=== PATIENT | male | born 1930 | race Asian ===

== ENCOUNTER 2017-08-14 18:34 | Inpatient (IN) | payer OTHER, MEDICAID ==
[~2017-08-14] VITALS: Ht 157.5 cm; Wt 61.7 kg
[2017-08-14 18:45] VITALS: Ht 157.5 cm; Wt 61.7 kg
[2017-08-14 19:50] LABS: BASOPHIL % 0.2 % (0-2); PLATELET COUNT 198 x10^3mcL (130-400); RED CELL DISTRIBUTION WIDTH 13.6 % (11.5-14.5)
[2017-08-14 20:00] LABS: CALCIUM 9.9 mg/dL (8.5-10.1); CARBON DIOXIDE 22.9 mmol/L (21-32); CHLORIDE SERUM 102 mmol/L (98-107); CREATININE SERUM 1.3 mg/dL (0.7-1.3); GLUCOSE SERUM 152 mg/dL (74-106); POTASSIUM SERUM 4.1 mmol/L (3.5-5.1); SODIUM SERUM 135 mmol/L (136-145)
[2017-08-14 20:10] LABS: UA SPECIFIC GRAVITY 1.015 (1.005-1.035); microscopic required? YES; urine erythrocyte 1+ (NEGATIVE)
[2017-08-14 20:10] LABS: ALBUMIN 3.8 g/dL (3.4-5.0); ALKALINE PHOSPHATASE 96 U/L (46-116); ALT/SGPT 28 U/L (16-63); AST/SGOT 27 U/L (15-37); BILIRUBIN TOTAL 0.49 mg/dL (0.20-1.00); TOTAL PROTEIN, SERUM 7.5 g/dL (6.4-8.2)
[2017-08-14 20:15] LABS: CK-MB 1.7 ng/mL (0-3.6)
[2017-08-14 21:47] VITALS: BP 149/58
[2017-08-14 21:49] LABS: MAGNESIUM 2.1 mg/dL (1.8-2.4); PHOSPHOROUS 1.7 mg/dL (2.5-4.9)
[2017-08-14 21:52] LABS: T3 TOTAL 0.91 ng/mL
[2017-08-14 21:57] LABS: FREE T4 1.25 ng/dL (0.76-1.46); FREE THYROXINE INDEX 3.8 ug/dL (1.4-4.5); T4(THYROXINE) 10.8 ug/dL (4.7-13.3)
[2017-08-14] MEDS ORDERED: NOR5 PO (22:11)
[2017-08-14] MEDS ORDERED: METFORMIN HCL500 MG PO (22:11)
[2017-08-14] MEDS ORDERED: LOSARTAN POTASS50 M1 PO (22:12)
[2017-08-15] VITALS (8 sets, daily range): BP systolic 127–151; BP diastolic 53–69
[2017-08-15 07:13] LABS: BASOPHIL % 0.3 % (0-2); PLATELET COUNT 168 x10^3mcL (130-400); RED CELL DISTRIBUTION WIDTH 13.9 % (11.5-14.5)
[2017-08-15 07:21] LABS: CALCIUM 9.2 mg/dL (8.5-10.1); CARBON DIOXIDE 25.4 mmol/L (21-32); CHLORIDE SERUM 103 mmol/L (98-107); CREATININE SERUM 1.1 mg/dL (0.7-1.3); GLUCOSE SERUM 121 mg/dL (74-106); MAGNESIUM 1.9 mg/dL (1.8-2.4); PHOSPHOROUS 2.7 mg/dL (2.5-4.9); POTASSIUM SERUM 3.9 mmol/L (3.5-5.1); SODIUM SERUM 136 mmol/L (136-145)
[2017-08-15] MEDS ORDERED: SINEMET 25-1001 TAB PO (12:12)
[2017-08-16 05:31] VITALS: BP 113/60
[2017-08-16 07:13] LABS: CALCIUM 9.7 mg/dL (8.5-10.1); CARBON DIOXIDE 22.6 mmol/L (21-32); CHLORIDE SERUM 101 mmol/L (98-107); CREATININE SERUM 1.1 mg/dL (0.7-1.3); GLUCOSE SERUM 144 mg/dL (74-106); POTASSIUM SERUM 4.1 mmol/L (3.5-5.1); SODIUM SERUM 134 mmol/L (136-145)
[2017-08-16 08:07] LABS: BASOPHIL % 0.4 % (0-2); PLATELET COUNT 158 x10^3mcL (130-400); RED CELL DISTRIBUTION WIDTH 13.8 % (11.5-14.5)
[2017-08-16 09:56] VITALS: BP 141/56
[2017-08-16 13:14] VITALS: BP 127/55
[2017-08-16 17:54] VITALS: BP 132/55; BP 135/57
[2017-08-16 21:54] VITALS: BP 138/61
[2017-08-17 05:58] LABS: BASOPHIL % 0.5 % (0-2); PLATELET COUNT 171 x10^3mcL (130-400); RED CELL DISTRIBUTION WIDTH 13.6 % (11.5-14.5)
[2017-08-17 06:20] VITALS: BP 122/53
[2017-08-17 06:24] LABS: CALCIUM 9.9 mg/dL (8.5-10.1); CARBON DIOXIDE 24.4 mmol/L (21-32); CHLORIDE SERUM 102 mmol/L (98-107); CREATININE SERUM 1.2 mg/dL (0.7-1.3); GLUCOSE SERUM 145 mg/dL (74-106); POTASSIUM SERUM 4.5 mmol/L (3.5-5.1); SODIUM SERUM 135 mmol/L (136-145)
[2017-08-17 09:55] VITALS: BP 118/49
[2017-08-17 12:00] VITALS: BP 119/46
[2017-08-17 15:53] VITALS: BP 119/46
[2017-08-17] MEDS ORDERED: LEVAQUIN500 M1 PO ×2 (16:01→18:58)
[2017-08-17] MEDS ORDERED: CLINDAMYCIN300 M1 PO (16:02)
[2017-08-17 17:36] VITALS: BP 105/53
[2017-08-17] MEDS ORDERED: CLINDAMYCIN HC300 MG PO (18:58)
[2017-08-17] MEDS ORDERED: LAC PO (18:58)
== END 2017-08-17 19:00 | disposition home or self-care (01) | DRG 177 ==
LOC: ED 18:34 → DU 20:59 → EDBEDREQ 20:59 → DU 21:34
PROVIDERS: Emergency Medicine; Family Medicine
DX: J69.0 Pneumonitis due to inhalation of food and vomit (principal); J96.00 Acute respiratory failure, unspecified whether with hypoxia or hypercapnia; N17.0 Acute kidney failure with tubular necrosis; E87.1 Hypo-osmolality and hyponatremia; E11.51 Type 2 diabetes mellitus with diabetic peripheral angiopathy without gangrene; E83.39 Other disorders of phosphorus metabolism; G20 Parkinson's disease; I10 Essential (primary) hypertension; D64.9 Anemia, unspecified; Z68.25 Body mass index [BMI] 25.0-25.9, adult; Z79.84 Long term (current) use of oral hypoglycemic drugs
CPT/HCPCS: 82962; 83880; 84439; 94150; 97110-GP; 97116-GP; 97530-GP; A9500; J1644; J1956; J2785; J3490; J7030; J7620; Q0092

== ENCOUNTER 2017-12-12 16:51 | Emergency (ER) | payer OTHER, MEDICAID ==
[~2017-12-12] VITALS: Ht 154.9 cm; Wt 65.8 kg
[~2017-12-12 16:51] MED LIST: CLINDAMYCIN HC300 MG PO; CLINDAMYCIN300 M1 PO; LAC PO; LEVAQUIN500 M1 PO; LOSARTAN POTASS50 M1 PO; METFORMIN HCL500 MG PO; NOR5 PO; SINEMET 25-1001 TAB PO
[2017-12-12 16:59] VITALS: Ht 154.9 cm; Wt 65.8 kg
[2017-12-12 17:38] LABS: BASOPHIL % 0.4 % (0-2); PLATELET COUNT 259 x10^3mcL (130-400); RED CELL DISTRIBUTION WIDTH 13.4 % (11.5-14.5)
[2017-12-12 17:48] LABS: CALCIUM 10.1 mg/dL (8.5-10.1); CARBON DIOXIDE 26.1 mmol/L (21-32); CHLORIDE SERUM 101 mmol/L (98-107); CREATININE SERUM 1.1 mg/dL (0.7-1.3); GLUCOSE SERUM 151 mg/dL (74-106); POTASSIUM SERUM 4.6 mmol/L (3.5-5.1); SODIUM SERUM 138 mmol/L (136-145)
[2017-12-12 17:54] LABS: ALBUMIN 3.7 g/dL (3.4-5.0); ALKALINE PHOSPHATASE 92 U/L (46-116); ALT/SGPT 8 U/L (16-63); AST/SGOT 16 U/L (15-37); BILIRUBIN TOTAL 0.49 mg/dL (0.20-1.00); TOTAL PROTEIN, SERUM 7.1 g/dL (6.4-8.2)
[2017-12-12 19:26] LABS: microscopic required? NO
[2017-12-12 19:34] LABS: urine erythrocyte NEGATIVE (NEGATIVE)
[2017-12-12 20:44] VITALS: BP 150/70
== END 2017-12-12 20:44 | disposition short-term general hospital (02) ==
LOC: ED 16:51
PROVIDERS: Emergency Medicine
DX: I63.9 Cerebral infarction, unspecified (principal); I10 Essential (primary) hypertension; G20 Parkinson's disease; E11.9 Type 2 diabetes mellitus without complications
CPT/HCPCS: 82962; J7040; Q0092

== ENCOUNTER 2018-01-23 10:17 | Inpatient (IN) | payer OTHER, MEDICAID ==
[~2018-01-23] VITALS: Ht 154.9 cm; Wt 63.5 kg
[2018-01-23 11:16] LABS: BASOPHIL % 0.2 % (0-2); PLATELET COUNT 235 x10^3mcL (130-400); RED CELL DISTRIBUTION WIDTH 13.5 % (11.5-14.5)
[2018-01-23 11:23] LABS: CALCIUM 10.1 mg/dL (8.5-10.1); CARBON DIOXIDE 23.1 mmol/L (21-32); CHLORIDE SERUM 96 mmol/L (98-107); CREATININE SERUM 1.3 mg/dL (0.7-1.3); GLUCOSE SERUM 202 mg/dL (74-106); POTASSIUM SERUM 4.5 mmol/L (3.5-5.1); SODIUM SERUM 128 mmol/L (136-145)
[2018-01-23 11:27] LABS: ALBUMIN 3.5 g/dL (3.4-5.0); ALKALINE PHOSPHATASE 99 U/L (46-116); ALT/SGPT 10 U/L (16-63); AST/SGOT 19 U/L (15-37); TOTAL PROTEIN, SERUM 6.8 g/dL (6.4-8.2)
[2018-01-23] MEDS ORDERED: ATORVASTATIN CA40 M1 PO (13:02)
[2018-01-23] MEDS ORDERED: ASPIR 8181 MG PO (13:02)
[2018-01-23] MEDS ORDERED: CLOPIDOGREL75 M1 PO (13:02)
[2018-01-23] MEDS ORDERED: MAGNESIUM OXID400 MG PO (13:03)
[2018-01-23] MEDS ORDERED: MASON NATURAL1000 IU PO (13:03)
[2018-01-23 13:58] VITALS: BP 157/68
[2018-01-23 17:17] VITALS: BP 147/45
[2018-01-23 17:30] VITALS: Ht 154.9 cm; Wt 63.5 kg
[2018-01-23 20:57] VITALS: BP 146/63
[2018-01-24 00:57] LABS: microscopic required? YES; urine erythrocyte 1+ (NEGATIVE)
[2018-01-24 05:40] VITALS: BP 142/58
[2018-01-24 06:45] LABS: BASOPHIL % 0.2 % (0-2); PLATELET COUNT 246 x10^3mcL (130-400); RED CELL DISTRIBUTION WIDTH 13.1 % (11.5-14.5)
[2018-01-24 07:12] LABS: CALCIUM 9.5 mg/dL (8.5-10.1); CARBON DIOXIDE 22.1 mmol/L (21-32); CHLORIDE SERUM 102 mmol/L (98-107); CREATININE SERUM 0.9 mg/dL (0.7-1.3); GLUCOSE SERUM 117 mg/dL (74-106); POTASSIUM SERUM 3.8 mmol/L (3.5-5.1); SODIUM SERUM 134 mmol/L (136-145)
[2018-01-24 10:00] VITALS: BP 132/49
[2018-01-24 13:37] VITALS: BP 114/60
[2018-01-24 15:07] VITALS: BP 114/60
== END 2018-01-24 15:53 | disposition home or self-care (01) | DRG 312 ==
LOC: ED 10:17 → DU 12:52
PROVIDERS: Emergency Medicine; Internal Medicine Pulmonary Disease
DX: R55 Syncope and collapse (principal); E87.1 Hypo-osmolality and hyponatremia; S00.11XA Contusion of right eyelid and periocular area, initial encounter; G20 Parkinson's disease; F02.80 Dementia in other diseases classified elsewhere, unspecified severity, without behavioral disturbance, psychotic disturbance, mood disturbance, and anxiety; I10 Essential (primary) hypertension; E11.9 Type 2 diabetes mellitus without complications; Z79.84 Long term (current) use of oral hypoglycemic drugs; W19.XXXA Unspecified fall, initial encounter; Y92.009 Unspecified place in unspecified non-institutional (private) residence as the place of occurrence of the external cause
CPT/HCPCS: 83880; 97110-GP; 97530-GP; J7030; J7040; Q0092

== ENCOUNTER 2018-03-03 21:18 | Emergency (ER) | payer OTHER, MEDICAID ==
[~2018-03-03] VITALS: Ht 154.9 cm; Wt 62.8 kg
[~2018-03-03 21:18] MED LIST changes: +ASPIR 8181 MG PO; +ATORVASTATIN CA40 M1 PO; +CLOPIDOGREL75 M1 PO; +MAGNESIUM OXID400 MG PO; +MASON NATURAL1000 IU PO
[2018-03-03 21:22] VITALS: Ht 154.9 cm; Wt 62.8 kg
[2018-03-04 00:26] VITALS: BP 126/101
== END 2018-03-04 00:26 | disposition home or self-care (01) ==
LOC: ED 21:18
DX: S61.411A Laceration without foreign body of right hand, initial encounter (principal); W18.30XA Fall on same level, unspecified, initial encounter; Y93.89 Activity, other specified; Y92.89 Other specified places as the place of occurrence of the external cause; Y99.8 Other external cause status; I10 Essential (primary) hypertension; E11.9 Type 2 diabetes mellitus without complications
CPT/HCPCS: 90715

== ENCOUNTER 2018-06-24 00:09 | Emergency (ER) | payer OTHER, MEDICAID ==
[~2018-06-24] VITALS: Ht 154.9 cm; Wt 62.6 kg
[2018-06-24 00:30] VITALS: Ht 154.9 cm; Wt 62.6 kg
[2018-06-24 03:17] VITALS: BP 128/62
== END 2018-06-24 03:17 | disposition home or self-care (01) ==
LOC: ED 00:09
DX: S06.0X0A Concussion without loss of consciousness, initial encounter (principal); S01.402A Unspecified open wound of left cheek and temporomandibular area, initial encounter; E11.9 Type 2 diabetes mellitus without complications; I10 Essential (primary) hypertension; Z86.73 Personal history of transient ischemic attack (TIA), and cerebral infarction without residual deficits; W18.39XA Other fall on same level, initial encounter; Y93.89 Activity, other specified; Y92.090 Kitchen in other non-institutional residence as the place of occurrence of the external cause; Y99.8 Other external cause status

== ENCOUNTER 2019-05-28 19:13 | Emergency (ER) | payer OTHER, MEDICAID ==
[~2019-05-28] VITALS: Ht 147.3 cm; Wt 55.3 kg
[2019-05-28 20:48] LABS: CALCIUM 9.5 mg/dL (8.5-10.1); CARBON DIOXIDE 25.5 mmol/L (21-32); CHLORIDE SERUM 105 mmol/L (98-107); CREATININE SERUM 1.9 mg/dL (0.7-1.3); GLUCOSE SERUM 161 mg/dL (74-106); POTASSIUM SERUM 4.4 mmol/L (3.5-5.1); SODIUM SERUM 141 mmol/L (136-145)
[2019-05-28 20:53] LABS: ALBUMIN 3.4 g/dL (3.4-5.0); ALKALINE PHOSPHATASE 86 U/L (46-116); ALT/SGPT 32 U/L (16-63); AMYLASE 32 U/L (25-115); AST/SGOT 13 U/L (15-37); BASOPHIL % 0.3 % (0-2); BILIRUBIN TOTAL 0.35 mg/dL (0.20-1.00); LIPASE 89 IU/L (73-393); PLATELET COUNT 223 x10^3mcL (130-400)
[2019-05-29 01:07] LABS: CALCIUM 8.9 mg/dL (8.5-10.1); CARBON DIOXIDE 26.1 mmol/L (21-32); CHLORIDE SERUM 109 mmol/L (98-107); CREATININE SERUM 1.5 mg/dL (0.7-1.3); GLUCOSE SERUM 119 mg/dL (74-106); POTASSIUM SERUM 4.3 mmol/L (3.5-5.1); SODIUM SERUM 142 mmol/L (136-145)
[2019-05-29 02:13] VITALS: BP 131/51
== END 2019-05-29 02:13 | disposition home or self-care (01) ==
LOC: ED 19:13
PROVIDERS: Emergency Medicine
DX: K52.9 Noninfective gastroenteritis and colitis, unspecified (principal); E86.0 Dehydration; I10 Essential (primary) hypertension; E11.9 Type 2 diabetes mellitus without complications; G20 Parkinson's disease; Z86.73 Personal history of transient ischemic attack (TIA), and cerebral infarction without residual deficits; Z90.49 Acquired absence of other specified parts of digestive tract
CPT/HCPCS: 36415; J2405; J7030